=== PATIENT | male | born 2000 | race Two or more races ===

== ENCOUNTER 2019-06-09 07:18 | Emergency (ER) | payer SELFPAY ==
[~2019-06-09] VITALS: Ht 180.3 cm; Wt 80.7 kg
[2019-06-09 08:16] LABS: Basophils # (auto) 0.1 uL; Basophils % (auto) 0.8 % (0.0-2.0); Eosinophils # (auto) 0.1 uL; Eosinophils % (auto) 0.7 % (0.0-7.0); Hematocrit 44.3 % (41.0-53.0); Hemoglobin 15.8 g/dL (13.5-17.5); Lymphocytes # (auto) 3.5 uL; Lymphocytes % (auto) 36.9 % (10.0-50.0); Mean Corpuscular Hemoglobin 29.3 pg (28.0-32.0); Mean Corpuscular Hgb Conc. 35.6 g/dL (32.0-36.0); Mean Corpuscular Volume 82.1 fL (80.0-100.0); Monocytes # (auto) 0.5 uL; Monocytes % (auto) 5.5 % (0.0-12.0); Neutrophils # (auto) 5.3 uL; Neutrophils % (auto) 56.1 % (37.0-80.0); Nucleated Red Blood Cells % 0.2 %; Platelet Count (auto) 302 10^3/uL (140-450); Red Cell Distribution Width 14.2 % (11.8-14.3); White Blood Cell 9.5 10^3/uL (4.4-10.8)
[2019-06-09 08:30] LABS: Urine Bacteria NONE SEEN /hpf (None Seen); Urine Blood Negative /uL (Negative); Urine Specific Gravity 1.009 (1.001-1.035); Urine WBC <1 /hpf (0 - 3)
[2019-06-09 08:31] LABS: Anion Gap 10 (5-15); Blood Urea Nitrogen 15 mg/dL (7-18); Calcium 9.6 mg/dL (8.5-10.1); Carbon Dioxide 20 mmol/L (21-32); Chloride 111 mmol/L (98-107); Glucose 112 mg/dL (74-106); Potassium 3.2 mmol/L (3.5-5.1); Sodium 141 mmol/L (136-145)
[2019-06-09 08:38] LABS: Alanine Aminotransferase 23 U/L (16-61); Alkaline Phosphatase 70 U/L (45-117); Aspartate Aminotransferase 19 U/L (15-37); BUN/Creatinine Ratio 16.5; Bilirubin, Total 1.1 mg/dL (0.2-1.0); GFR African American 135 mL/min; GFR Non-African American 112 mL/min; Total Protein 8.7 g/dL (6.4-8.2)
[2019-06-09] MEDS ORDERED: ALUM & MAG HYDROX-SIMETH LIQ(MAALOX) 30 ML PO ONE (08:45)
[2019-06-09] MEDS ORDERED: DONNATAL 5ml ORAL Elix (BELLADONNA ALK-PHENOBARB) PO ONE (08:45)
[2019-06-09] MEDS ORDERED: LIDOCAINE VISCOUS 2% 15ML UD PO ONE (08:45)
[2019-06-09] MEDS ORDERED: FAMOTIDINE 20 MG TAB PO ONE (08:45)
[2019-06-09 08:53] LABS: Alcohol, Urine < 3.0 mg/dL (0-5); Amphetamine Screen, Urine NEGATIVE (NEGATIVE); Barbiturate Scree,Urine NEGATIVE (NEGATIVE); Benzodiazephine Screen, Urine NEGATIVE (NEGATIVE); Cannabinoid Screen, Urine NEGATIVE (NEGATIVE); Cocaine Screen, Urine NEGATIVE (NEGATIVE); Opiate Scree,Urine NEGATIVE (NEGATIVE); Phencyclidine Screen, Urine NEGATIVE (NEGATIVE)
[2019-06-09] MEDS ORDERED: POTASSIUM CHL 20 Meq TABLET PO ONE (09:00)
== END 2019-06-09 09:42 | disposition home or self-care (01) ==
LOC: ER 07:18
DX: R07.89 Other chest pain (principal); K21.9 Gastro-esophageal reflux disease without esophagitis
CPT/HCPCS: 36415; 71046; 80053; 80307; 81001; 84484; 85025; 93005

== ENCOUNTER 2021-12-11 15:37 | Emergency (ER) | payer MEDICAID ==
[~2021-12-11] VITALS: Ht 180.3 cm; Wt 86.2 kg
[2021-12-11] MEDS ORDERED: PANT40TA2 PO (16:43)
[2021-12-11] MEDS ORDERED: PRED20TA2 PO (16:43)
[2021-12-11] MEDS ORDERED: methylPREDNISolone SOD SUCC 125 MG/2 ML VL IM ONE (16:45)
[2021-12-11 18:30] VITALS: BP 140/76
== END 2021-12-11 18:45 | disposition home or self-care (01) ==
LOC: ER 15:37
DX: G51.0 Bell's palsy (principal)
CPT/HCPCS: 70450; 96372; 99284; J2930